=== PATIENT | female | born 1970 ===

== ENCOUNTER 2018-07-27 17:27 | Emergency (ER) | payer OTHER ==
[2018-07-27 17:41] VITALS: BMI 43.9
[2018-07-27 17:44] VITALS: O2SAT 96
[2018-07-27] MEDS ORDERED: Sodium Chloride 0.9% 1,000 ML IV ONE (19:22)
[2018-07-27] MEDS ORDERED: Iohexol 240 (50 ml) PO STA (19:22)
--- NOTE | 2018-07-27 19:27 | C.PDOC ---
History Of Present Illness 48 year old female presents to the ED c/o LLQ abdominal pain for the past several days. Patient states she has been taking Ibuprofen, however she states pain come and goes and has been getting progressively worse. Patient reports martita t last year she had similar pain and at that time her Doctor told her she had diverticulitis. Patient denies fever, chills, nausea, vomit, diarrhea, dysuria, hematuria, back pain, rash. Time Seen by Provider: 07/27/18 19:15 Chief Complaint (Nursing): Abdominal Pain History Per: Patient History/Exam Limitations: no limitations Onset/Duration Of Symptoms: Days (several) Current Symptoms Are (Timing): Still Present Location Of Pain/Discomfort: LLQ Radiation Of Pain To:: None Quality Of Discomfort: "Pain" Associated Symptoms: denies: Nausea, Vomiting, Diarrhea, Urinary Symptoms Alleviating Factors: None Recent travel outside of the [place]: No Additional History Per: Patient Abnormal Vaginal Bleeding: No Past Medical History Reviewed: Historical Data, Nursing Documentation, Vital Signs Vital Signs: Last Vital Signs Temp 98.6 F 07/27/18 17:40 Pulse 63 07/27/18 17:40 Resp 18 07/27/18 17:40 BP 114/75 07/27/18 17:40 Pulse Ox 96 07/27/18 17:40 - Medical History PMH: HTN Surgical History: Cholecystectomy Family History: States: Unknown Family Hx - Social History Hx Alcohol Use: No Hx Substance Use: No - Immunization History Hx Tetanus Toxoid Vaccination: No Hx Influenza Vaccination: No Hx Pneumococcal Vaccination: No Review Of Systems Constitutional: Negative for: Fever, Chills Cardiovascular: Negative for: Chest Pain Respiratory: Negative for: Shortness of Breath Gastrointestinal: Positive for: Abdominal Pain. Negative for: Nausea, Vomiting, Diarrhea Genitourinary: Negative for: Dysuria, Hematuria Musculoskeletal: Negative for: Back Pain Skin: Negative for: Rash Neurological: Negative for: Weakness, Numbness Physical Exam - Physical Exam Appears: Non-toxic, No Acute Distress Skin: Normal Color, Warm, Dry Head: Atraumatic, Normacephalic Eye(s): bilateral: Normal Inspection Oral Mucosa: Moist Neck: Normal ROM, Supple Chest: Symmetrical Cardiovascular: Rhythm Regular Respiratory: Normal Breath Sounds, No Rales, No Rhonchi, No Wheezing Gastrointestinal/Abdominal: Soft, Tenderness (localized LLQ), Guarding, No Rebound Extremity: Normal ROM, No Tenderness, No Swelling Neurological/Psych: Oriented x3, Normal Speech, Normal Cognition Gait: Steady ED Course And Treatment - Laboratory Results Result Diagrams: 07/27/18 19:48 07/27/18 19:48 O2 Sat by Pulse Oximetry: 96 (ON RA) Pulse Ox Interpretation: Normal - CT Scan/US CT abd/pelvis Other Rad Studies (CT/US): Read By Radiologist, Radiology Report Reviewed CT/US Interpretation: CLINICAL HISTORY: Diane umbilical pain. TECHNIQUE: Multiple axial, coronal, sagittal CT images were obtained through the abdomen and pelvis after administration of oral and intravenous contrast material. VISI 100 MLS. DLP 1146.59. . COMMENTS: The liver is of uniform attenuation without mass or defect. There is no intra or extrahepatic biliary ductal dilatation. The spleen is normal. The patient is status post cholecystectomy. The pancreas is of normal contour and attenuation characteristics. There is no evidence of adrenal mass. Both kidneys demonstrate prompt and equal nephrograms. The kidneys are normal in size, shape and configuration. There is no evidence of renal or ureteral mass. There is a 6 mm cyst in the superior pole of the left kidney. There is a pelvic phlebolith noted adjacent to the distal right ureter although it is clearly outside of the ureter. No evidence for appendicitis. There is no bowel wall thickening. No evidence for small or large bowel obstruction. There is no evidence of abdominal ascites or lymphadenopathy. Diverticulosis is noted involving the descending and sigmoid colon. There is stranding noted adjacent to proximal sigmoid colon consistent with acute diverticulitis. No evidence of free air or perforation. The uterus and right ovary are unremarkable. Note is made of a 5 cm left ovarian cystic lesion. Correlation with pelvic ultrasound is recommended. There is no evidence of intrinsic or extrinsic bladder mass. There is no pelvic ascites or lymphadenopathy. Images of the lung bases show no evidence of pleural or parenchymal mass. There are no pleural effusions. The heart is moderately enlarged. Small hiatal hernia is seen. The bony structures are free of lytic or blastic lesions. IMPRESSION: 1. Status post cholecystectomy. 2. Cyst in the superior pole of the left kidney. 3. There is a pelvic phlebolith noted adjacent to the distal right ureter although it is clearly outside of the ureter. 4. Diverticulosis is noted involving the descending and sigmoid colon. There is stranding noted adjacent to proximal sigmoid colon consistent with ac knik diverticulitis. No evidence of free air or perforation. 5. 5 cm left ovarian cystic lesion. Correlation with pelvic ultrasound is recommended. 6. The heart is moderately enlarged. 7. Small hiatal hernia is seen. . Electronically signed on Jul 27, 2018 10:02:59 PM EST by: Den Ralph M.D., PAWEL Certified By [employer] [facility]. Fellowship Trained MRI and CT Specialist. Reevaluation Time: 22:06 Reassessment Condition: Improved Medical Decision Making Medical Decision Making: Plan: * CT abd/pelvis * Labs * IV fluids * UA Disposition Counseled Patient/Family Regarding: Studies Performed, Diagnosis, Need For Followup, Rx Given - Disposition Referrals: Lisy Sutherland MD [Non-Staff] - Disposition: HOME/ ROUTINE Disposition Time: 22:09 Condition: STABLE Additional Instructions: Take a probiotic while on the antibiotics. Prescriptions: Amoxicillin/Clavulanate [Augmentin 875 MG-125 MG] 1 tab PO BID #14 tab Instructions: Diverticulitis (DC) Forms: [employer] ([employer]), Work Excuse - Clinical Impression Clinical Impression: Diverticulitis - Scribe Statement The provider has reviewed the documentation as recorded by the Scribe Artie Bailey All medical record entries made by the Scribe were at my direction and personally dictated by me. I have reviewed the chart and agree that the record accurately reflects my personal performance of the history, physical exam, medical decision making, and the department course for this patient. I have also personally directed, reviewed, and agree with the discharge instructions and disposition.
[2018-07-27] MEDS ORDERED: Sodium Chloride 0.9% 1,000 ML ONE (19:33)
[2018-07-27] MEDS ORDERED: Iohexol 240 (50 ml) ONE (19:33)
[2018-07-27 19:59] LABS: BASO % 0.6 % (0.0-2.0); EOS # 0.1 K/uL (0.0-0.7); EOS % 2.2 % (0.0-4.0); HEMOGLOBIN 11.3 g/dL (11.0-16.0); LYMPH # 2.2 K/uL (1.0-4.3); LYMPH % 39.3 % (20.0-40.0); MEAN CELL VOLUME 83.2 fL (81.0-99.0); MEAN CORPUSCULAR HEMOGLOBIN 27.3 pg (27.0-31.0); MEAN CORPUSCULAR HGB CONC 32.8 g/dL (33.0-37.0); MEAN PLATELET VOLUME 7.1 fL (7.2-11.7); MONO # 0.5 K/uL (0.0-0.8); MONO % 9.4 % (0.0-10.0); NEUT # 2.7 K/uL (1.8-7.0); NEUT % 48.5 % (50.0-75.0); NRBC % 0.1 % (0.0-2.0); RBC 4.13 Mil/uL (3.80-5.20); RED CELL DISTRIBUTION WIDTH 16.2 % (11.5-14.5); WHITE BLOOD COUNT 5.5 K/uL (4.8-10.8)
[2018-07-27 20:03] LABS: HCG,QUALITATIVE URINE NEGATIVE (NEGATIVE)
[2018-07-27 20:06] LABS: SQUAMOUS EPITHIAL 1 /hpf (0-5); URINE BILIRUBIN NEGATIVE (NEGATIVE); URINE BLOOD 1+ (NEGATIVE); URINE CLARITY Clear (Clear); URINE COLOR Yellow (YELLOW); URINE GLUCOSE (UA) NORMAL (Normal); URINE LEUKOCYTE ESTERASE NEG Leu/uL (Negative); URINE PROTEIN NEGATIVE (NEGATIVE); URINE UROBILINOGEN NORMAL mg/dL (0.2-1.0)
[2018-07-27 20:09] LABS: ALB/GLOB RATIO 1.2 (1.0-2.1); ALT/SGPT 24 U/L (9-52); AST/SGOT 27 U/L (14-36); BLOOD UREA NITROGEN 12 mg/dL (7-17); CALCIUM 8.8 mg/dl (8.6-10.4); GFR NON-AFRICAN AMERICAN > 60; LIPASE 153 U/L (23-300)
[2018-07-27] MEDS ORDERED: Iodixanol 320 MG/ML 100 ML BOTTLE IV ONE (20:29)
[2018-07-27 22:06] VITALS: BP 107/70; PULSE 61; RESP 20; TEMP 97.9
--- NOTE | 2018-07-28 08:40 | CT ---
Date of service: 07/27/2018 PROCEDURE: CT Abdomen and Pelvis with contrast HISTORY: Abdominal pain COMPARISON: None. TECHNIQUE: Radiation dose: Total exam DLP = 1146.59 mGy-cm. This CT exam was performed using one or more of the following dose reduction techniques: Automated exposure control, adjustment of the mA and/or kV according to patient size, and/or use of iterative reconstruction technique. FINDINGS: LOWER THORAX: Unremarkable. LIVER: Unremarkable. No gross lesion or ductal dilatation. GALLBLADDER AND BILE DUCTS: Prior cholecystectomy. PANCREAS: Unremarkable. No gross lesion or ductal dilatation. SPLEEN: Unremarkable. ADRENALS: Unremarkable. No mass. KIDNEYS AND URETERS: Unremarkable. No hydronephrosis. No solid mass. 7 millimeter hypodensity seen at the upper pole of the left kidney, too small to adequately characterize. VASCULATURE: Unremarkable. No aortic aneurysm. No aortic atherosclerotic calcification or mural plaque present. BOWEL: Colonic diverticulosis. In addition, there is focal colonic thickening with associated adjacent mesenteric fat stranding seen at the level of the proximal sigmoid colon suggestive for an acute diverticulitis versus focal colitis versus additional etiology. Post treatment follow-up exam may helpful to exclude additional etiology. In addition, posttreatment colonoscopy may be helpful. APPENDIX: Normal appendix. PERITONEUM: Unremarkable. No free fluid. No free air. LYMPH NODES: Unremarkable. No enlarged lymph nodes. BLADDER: Unremarkable. REPRODUCTIVE: Complex left adnexal cystic lesion measuring 7.2 x 5.5 centimeters with solid and cystic components. Correlation with pelvic ultrasound is recommended. BONES: Degenerative changes in the spine. Grade 1 anterolisthesis of L5 on S1. OTHER FINDINGS: None. IMPRESSION: Colonic diverticulosis. In addition, there is focal colonic thickening with associated adjacent mesenteric fat stranding seen at the level of the proximal sigmoid colon suggestive for an acute diverticulitis versus focal colitis versus additional etiology. Post treatment follow-up exam may helpful to exclude additional etiology. In addition, posttreatment colonoscopy may be helpful. Complex left adnexal cystic lesion measuring 7.2 x 5.5 centimeters with solid and cystic components. Correlation with pelvic ultrasound is recommended. Additional findings as above. A preliminary report was generated at 10:02 p.m. on 07/27/[address] Den Ralph from [employer].
== END 2018-07-27 22:05 | disposition home or self-care (01) ==
LOC: C.ER 17:27
DX: K57.32 Diverticulitis of large intestine without perforation or abscess without bleeding (principal)
CPT/HCPCS: 74177; 80053; 81001; 83690; 84703; 85025; 96360; 99284; J7030; Q9966; Q9967